=== PATIENT | female | born 1985 | race Caucasian/White ===

== ENCOUNTER 2020-04-23 05:25 | Emergency (ER) | payer BC ==
[~2020-04-23] VITALS: Ht 162.6 cm; Wt 108.4 kg
[2020-04-23 05:32] VITALS: BP 117/72
[2020-04-23] MEDS ORDERED: KETOROLAC 30 MG/ML VIAL IVP ONE (05:40)
[2020-04-23] MEDS ORDERED: NACL 0.9% 1,000 ML IV ONE (05:40)
[2020-04-23] MEDS ORDERED: KETOROLAC 60 MG/2 ML VIAL IM ONE (06:20)
[2020-04-23 06:45] VITALS: BP 117/72
== END 2020-04-23 06:45 | disposition home or self-care (01) ==
LOC: MED 05:25
DX: N39.0 Urinary tract infection, site not specified (principal); J45.909 Unspecified asthma, uncomplicated
CPT/HCPCS: 81002; 81025; 87086; 96372; 99283; J1885